=== PATIENT | female | born 1985 | race Caucasian/White ===

== ENCOUNTER 2022-06-05 13:08 | Outpatient (CLI) | payer OTHER, SELFPAY ==
[2022-06-07 21:11] LABS: Rapid Plasma Reagin (RPR) Non Reactive (Non Reactive)
== END 2022-06-05 13:09 | disposition home or self-care (01) ==
LOC: NFLDREF 13:09
PROVIDERS: PCP Family Medicine; Visit Provider Obstetrics & Gynecology
DX: Z34.92 Encounter for supervision of normal pregnancy, unspecified, second trimester (principal); Z3A.27 27 weeks gestation of pregnancy
CPT/HCPCS: 86592

== ENCOUNTER 2022-07-08 12:36 | Outpatient (CLI) | payer OTHER, SELFPAY ==
--- OUTSIDE RECORDS SUMMARY | 2022-07-08 12:38 | XMS_ITS | Encounter Summary ---
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
--- OUTSIDE RECORDS SUMMARY | 2022-07-08 12:38 | XMS_ITS | Clinical Summary ---
:1985 Author Organization [facility] Address [address] [place] [address] Care Team Providers Name Role Phone Patience Arechiga APRN, DRILLING RIG OPERATOR Primary Care Provider Unavail able Source Comments You are receiving this document as you are listed as the primary care provider,follow-up provider, or the patient has been referred to you for consultation.This is in compliance with the Medicare and Medicaid EHR Incentive Program,which states Providers who transition their patient to another setting of careor provider of care or refers their patient to another provider of care shouldprovide summarycare record for each transition of care or referral. [employer] Allergies Active Allergy Reactions Severity Noted Date Comments Sulfa Antibiotics Rash 09/10/2017 Medications Medication Sig Dispensed Refills Start Date End Date Status ALBUTEROL Indications: 0 Active INIndications: exercised induced exercised induced asthma asthma cetirizine (ZYRTEC) Take 10 mg by mouth 0 Active 10 MG tablet as needed for Allergies. Take 1 Tab by mouth 0 Active vitamin-ferrous daily. fumarate-folic acid (PRENATALPLUS) 27-1 MG tablet Social History Tobacco Use Types Packs/Day Years Used Date Smoking Tobacco: Never Smokeless Tobacco: Never Sex Assigned at Date Recorded Not on file Plan of Treatment Health Maintenance Due Date Last Done Comments Cervical Cancer Screening Due 1985 Hep C Screening (Preventive 1985 Services) HepB (1) 1985 COVID-19 Vaccine (#1) 04/04/1986 HIV Screening (Preventive 2001 Services) Adult Preventive Visit 2003 DTaP/Tdap/Td (1 - Tdap) 2004 Influenza (#1) 2022 Zoster/Shingles (1 of 2) 2035 HPV Vaccine Aged Out No longer marisol lindsey based on patient's age to complete this topic HepA Aged Out No longer eligib le based on patient's age to complete this topic Hib Aged Out No longer eligib le based on patient's age to complete this topic IPV (Polio) Aged Out No longer eligib le based on patient's age to complete this topic MCV4 Aged Out No longer eligib le based on patient's age to complete this topic Pneumococcal Aged Out No longer eligib le based on patient's age to complete this topic Insurance Payer Benefit Plan / Subscriber ID Effective Dates Phone Addre ss Type Group BC[facility] [id number] 2017-Present [address] [address] [place] [address] [phone] ([address]) [place] [address] Care Teams Air Grinder Relationship Specialty Start Date End Date Patinece Arechiga APRN, DRILLING RIG OPERATOR PCP - General Nurse Practitioner
--- OUTSIDE RECORDS SUMMARY | 2022-07-08 12:38 | XMS_ITS | Encounter Summary ---
:1985 Author Organization [employer] Address [address] [place] [address] Care Team Providers Name Role Phone Patience Arechiga APRN, INBOUND INGREDIENT LOGISTICS SPECIALIST Primary Care Provider Unavail able Reason for Visit Reason Comments SKIN LESION mole of concern Encounter Details Date Type Department Care Team Description 09/10/2017 Initial Consult [facility] Kate Lazar, Neoplasm of skin (Primary Dx ); [address] MD Ingrown hair; [id number] Painful skin lesion [place] [address] [place] [phone] [address] Social History Tobacco Use Types Packs/Day Years Used Date Smoking Tobacco: Never Smokeless Tobacco: Never Sex Assigned at Date Recorded Not on file documented as of this encounter Patient Instructions Patient InstructionsJose Farnaz XiangROULA - 09/10/2017 9:15 AM CDT Care Instructions after a shave skin biopsy/removal When do I start changing the bandage on my wound site? Leave the original bandage/dressing in place for 24 to 48 hours. If you develop bleeding from the site, apply firm pressure directly over the bandage, using the heel of your hand, for [address] on top of the first one - don???t keep removing and replacing dressings. NO PEEKING!Notify us if the bleeding still does not stop. How do I change the bandage on my wound? Clean the area once a day with warm soap and water. Gently pat dry the area. After the area has been cleaned and is dry, apply a small amount of petroleum jelly or Aquaphor healing ointment and apply a new bandage. We prefer that you do not use an antibacterial ointment (i.e. bacitracin, Neosporin) as many people develop a hypersensitivity including a rash and even blistering related to these. Is it okay to shower after having a skin biopsy/removal? Showering is okay, but please do not soak in a bathtub, hot tub, or pool. This will slow the healingprocess and may create infection. When can I stop bandaging my wound? Continue the wound care process until the area is healed. Complete healing usually takes 2-4 weeks. Wounds heal best when kept moist, try not to let the area dry out. During this process you may see a white film develop over your wound and this is part of the normal healing process. Letting them open to air, drying out, and having a scab form actually causes wounds to take longer to heal. If your skin is getting sensitive to the bandage, use gauze and paper tape. Can I exercise after having a skin biopsy/removal? Avoid exercising for 2 days. What signs or symptoms should I call the dermatology department about? Infection after a biopsy is not likely, but can occur. Mild amounts of redness, bruising, swelling, discomfort and a clear to yellowish to blood-tinged discharge are normal. Signs of Infection include: fever, increasing pain, blood blister, drainage of pus, and extreme heatfrom the site. Please call the clinic at [phone] if you experience any of these symptoms. When will I receive my skin biopsy/removal results? Your skin biopsy specimen will be sent to our laboratory for processing. It will then be interpretedby one of our board-certified dermatopathologists, Dr. Joe Brantley, Dr. Lauren Nielson, and Dr. Pj Dick. The dermatopathologists will write their findings in a pathology report. Your provider will then contact you with the results of this pathology report when it is available. Typically you wi ll be contacted 7 to 14 days after your biopsy or procedure. Our pathology services will be listed separately on your bill. If you have further questions about the biopsy process or if you have not received your biopsy results within 2 weeks, please call us at [phone]. documented in this encounter Progress Notes Kate Lazar MD - 09/10/2017 9:15 AM CDT Chief Complaint Patient presents with ??? SKIN LESION mole of concern History of Present Illness: Adelaide Jean is a 31 y.o. female who presents to clinic today for a couple spots of concern. Patient is new to [facility]. No history of skin cancer. Patient states she has a raised mole in the left axilla which has gotten darker and also gets caught when shaving. She feels some other moles changed in and is wondering if this is normal. Patient also notes a pimple-like spot near her C section scar. She additionally has questions about tightening of skin on abdomen post . No other skin concerns at this time. Past Medical History: No history of skin cancer. Family History: Sister with possible history of melanoma. Mother has atypical nevi. Social History: Here with 4.5 month old daughter Yesika. Medications: The patient has a current medication list which includes the following prescription(s): albuterol, cetirizine, and vitamin-ferrous fumarate- folic acid. Allergies: The patient is allergic to sulfa antibiotics. Review of Systems: General/Constitutional: No fever, chills, unexplained weight loss. Allergy/Immunologic: No history of hypersensitivity to injected anesthesia or topical care products.Not currently immunosuppressed. Skin: See HPI for pertinent positives. No other bleeding, itching, peeling, changing skin lesions other than reported in HPI. Physical Examination: General: Well-appearing female, in no distress, alert and oriented. Skin: Focused exam of the left axilla and abdomen. Pertinent findings: - (A) She has a tag like mole in the left axillary vault, kind of darker in the center, 5 mm. - Inflammatory papule on C section scar on the low abdomen. - Loose abdominal skin post . Exam otherwise was normal. Assessment and Plan: 1. Neoplasm of unspecified nature of soft tissue or skin. Site A: Left axillary vault. Clinical impression: Irritated nevus. Anesthesia was obtained by 1% lidocaine and epinephrine by local infiltration. Area was prepped withalcohol. Lesion was removed by tangential excision with a double edged blade. Edges and base curetted. Hemostasis with aluminum chloride. Routine after care directions given. No complications. Specimensent for pathology. Patient will be notified of the report and need for follow up. 2. Inflammatory papule on C section scar. Patient reassured. Discussed this should resolve on its own. Looks like ingrown hair. 3. Post body changes. Discussed strengthening abdominal muscles and following up with Plastic Surgery if desired. Follow up: Return to clinic as needed. Scribe Disclosure: I, Rossi Gongora, am serving as a scribe to document services personally performed by Kate Lazar MD at this visit, based upon the provider's statements to me. Entered on 09/10/17. Notes Recorded by Peyton Pal RN on 09/17/2017 at 4:07 PM Patient has been notified of results. ------ Notes Recorded by Kate Lazar MD on 09/17/2017 at 12:19 PM Please let her know that this was a benign mole and requires no further treatment. ? Narrative ? FINAL DERMATOPATHOLOGY REPORT Pathology #: [id number] ? Date Obtained: 09/10/2017 ?Date Received: 09/11/2017 DIAGNOSIS: ?Skin, left axillary vault, shave biopsy: ?- Compound nevus, extending to the edges of the biopsy. ? LAUREN NIELSON MD ? (electronic signature) ? 09/12/2017 ??12:09 CLINICAL NOTES: ?Pertinent Clinical Hx/Evaluate for?->. Clinical Impression ?(A)->Irritated nevus ORGAN/TISSUE SITE: ?L axillary vault GROSS DESCRIPTION: ?Received in a formalin-filled container labeled with the ?patient's name is a 6 x 3 x 3 mm shave biopsy of skin. ??The ?specimen is marked with black ink, bisected, and submitted ?entirely in one cassette. ?da ? SPDEN Farnaz Garcia LPN - 09/10/2017 9:15 AM CDT Images from the original note were not included. Biopsy Left axillary vault documented in this encounter Plan of Treatment Not on filedocumented as of this encounter Procedures Procedure Name Priority Date/Time Associated Comments Diagnosis DERMATOLOGY TISSUE Routine 09/10/2017 9:47 AM Neoplasm of skin Results for this TRACKING TEST CDT procedure are in the results section. SURGICAL BENJI PARK Routine 09/10/2017 7:00 AM Re sults for this NICOLLET CDT procedure are i n the results section. documented in this encounter Results Dermatology Tissue Tracking Test (09/10/2017 9:47 AM CDT) [facility] Signature Dermatology Collected PN SOFT Specimen Status Specimen (Source) Anatomical Collection Method Collection Time Re ceived Time Location / / Volume Laterality 09/10/2017 9:47 AM CDT Kate Lazar MD LAB_1 Performing Organization Address City/State/ZIP Code Phon e Number [facility] [address] [place] [address] Pathology Report (09/10/2017 7:00 AM CDT) [facility] gist Method Time Signature Path: FINAL DERMATOPATHOLOGY REPORT PN COLEEN Pathology #: [id number] ? Date Obtained: 09/10/2017 ?Date Received: 09/11/2017 DIAGNOSIS: ?Skin, left axillary vault, shave biopsy: ?- Compound nevus, extending to the edges of the bio psy. ? Johnie UMANA ? (electronic signatur e) ? 09/12/2017 ??12:0 9 CLINICAL NOTES: ?Pertinent Clinical Hx/Evaluate for?->. Clinical I mpression ?(A)->Irritated nevus ORGAN/TISSUE SITE: ?L axillary vault GROSS DESCRIPTION: ?Received in a formalin-filled container labeled victoriano rouse the ?patient's name is a 6 x 3 x 3 mm shave biopsy of sk in. ??The ?specimen is marked with black ink, bisected, and patterson bmitted ?entirely in one cassette. ?da ? SPDEN MICROSCOPIC DESCRIPTION: ?Microscopic examination performed. Technical component performed at: [facility], [address], [place] [address] Professional component performed at: [facility], [address] [place] [address] Specimen Anatomical Collection Method Collection Time Receive d Time (Source) Location / / Volume Laterality SHAVE BIOPSY OF 09/10/2017 7:00 AM 2016 7:00 SKIN / Unknown CDT AM CDT Kate Lazar MD LAB_1 Performing Organization Address City/State/ZIP Code Phon e Number PN SOFT [address] [place] [address] documented in this encounter Visit Diagnoses Diagnosis Neoplasm of skin ([facility]) - Primary Neoplasm of unspecified nature of bone, soft tissue, and skin Ingrown hair Other specified disease of hair and hair follicles Painful skin lesion documented in this encounter Care Teams Barrel Tester And Drainer Relationship Specialty Start Date End Date Elie-Patience Garcia APRN, INBOUND INGREDIENT LOGISTICS SPECIALIST PCP - General Nurse Practitioner documented as of this encounter
--- NOTE | 2022-07-08 13:00 | CRLHL7_ITS ---
For Patients: As a result of the Century Cures Act, medical imaging exams and procedure reports are released immediately into your electronic medical record. You may view this report before your referring provider. If you have questions, please contact your health care provider. INDICATION: Third trimester scan, evaluate growth. COVID positive in , AMA COMPARISON: 04/10/2022 TECHNIQUE: Real time craig scale imaging of the fetus was performed. FINDINGS: Sonographic imaging demonstrates a single living intrauterine gestation. Fetus demonstrates a regular cardiac rate of 135 beats per minute. Fetus has a vertex position. The placenta lies anteriorly. Amniotic fluid volume appears normal and there is a single deepest vertical pocket: 4.6 cm. The estimated weight is 2236gm which lies at the 73rd %. On the prior OB ultrasound exam dated 04/10/2022 the estimated weight was at the 59th%. BPD 37th percentile. HC 55th percentile. AC 91st percentile. FL 39th percentile. The HC/AC ratio measures 1.01 range (0.95-1.11). IMPRESSION: Sonographic gestational age 33 weeks 3 days and sonographic due date of 08/23/2022. Sonographic age is 6 days ahead of the clinical age. Estimated weight 73rd percentile. Abdominal circumference 91st percentile. Query possible prominent proximal duodenum in addition to the stomach on the cine clips. Follow-up ultrasound in 2 weeks recommended to assess this finding in more detail. Of note, there is no polyhydramnios on today`s examination. Dictated by Luis Fernando Whitley MD @ 07/08/2022 2:37:14 PM (Electronically Signed)
== END 2022-07-08 12:37 | disposition home or self-care (01) ==
LOC: US 12:37
PROVIDERS: PCP Family Medicine; Visit Provider Obstetrics & Gynecology
DX: O98.513 Other viral diseases complicating pregnancy, third trimester (principal); U07.1 COVID-19; Z3A.33 33 weeks gestation of pregnancy
CPT/HCPCS: 76816

== ENCOUNTER 2022-07-22 13:58 | Outpatient (CLI) | payer OTHER, SELFPAY ==
--- NOTE | 2022-07-22 14:00 | CRLHL7_ITS ---
For Patients: As a result of the Cures Act, medical imaging exams and procedure reports are released immediately into your electronic medical record. You may view this report before your referring provider. If you have questions, please contact your health care provider. INDICATION: COVID in , check growth. COMPARISON: OB ultrasound 07/08/2022. TECHNIQUE: Real time craig scale imaging of the fetus was performed. FINDINGS: Sonographic imaging demonstrates a single living intrauterine gestation. The fetus has a regular cardiac rate of 144 beats per minute. The fetus has a cephalic orientation. The placenta lies anteriorly without evidence of placenta previa. Amniotic fluid volume appears normal. Single deepest pocket measures 5.0 cm. The composite ultrasound gestational age is calculated at 34 weeks 6 days with an estimated sonographic due date of 08/27/2022. The estimated weight is 2520 grams which lies at the 52nd percentile. The following biometric measurements were obtained: Biparietal diameter: 8.62 cm (34 weeks 5 days) (57th percentile) Head circumference: 31.31 cm (35 weeks 1 day) (27th percentile) Abdominal circumference: 30.75 cm (34 weeks 5 days) (60th percentile) Femur length: 6.79 cm (34 weeks 6 days) (51st percentile) The HC/AC ratio measures: 1.02 (range 0.93-1.11) IMPRESSION: 1. Single living intrauterine gestation in cephalic position with heart rate 144 beats per minute. 2. Ultrasound gestational age 34 weeks 6 days with sonographic due date 08/27/2022. This is concordant with the clinical gestational age of 34 weeks 4 days. 3. Estimated weight at the 52nd percentile. Dictated by Laura Evangelista MD @ 07/22/2022 6:26:43 PM (Electronically Signed)
== END 2022-07-22 13:59 | disposition home or self-care (01) ==
LOC: US 13:59
PROVIDERS: PCP Family Medicine; Visit Provider Obstetrics & Gynecology
DX: O98.513 Other viral diseases complicating pregnancy, third trimester (principal); Z3A.34 34 weeks gestation of pregnancy
CPT/HCPCS: 76816

== ENCOUNTER 2022-07-29 16:44 | Outpatient (CLI) | payer OTHER, SELFPAY ==
--- OUTSIDE RECORDS SUMMARY | 2022-07-29 16:45 | XMS_ITS | Clinical Summary ---
:1985 Author Organization [facility] [place] [address] Care Team Providers Name Role Phone Pcp, No Primary Care Provider Unavailable Allergies Active Allergy Reactions Severity Noted Date Comments Erythromycin Homeopathic Products Sulfa (Sulfonamide Antibiotics) Sulfasalazine Rash 09/10/2017 Medications Medication Sig Dispensed Refills Start Date End Date Status fluticasone (50 mcg per Inhale 1-2 Sprays 1 Bottle 3 04/14/20 14 Active actuation) nasal into both solution nostrils once (FLONASE)Indications: daily. Allergic rhinitis, cause unspecified olopatadine (PATANOL) Place 1 Drop into 1 Bottle 2 06/16/2015 Active 0.1 % ophthalmic both eyes 2 times solutionIndications: daily. Allergic rhinitis, cause unspecified montelukast (SINGULAIR) Take 1 tablet by 90 tablet 0 5 Active 10 mg mouth at bedtime. tabletIndications: Allergic rhinitis, cause unspecified vitamin-folic Take 1 tablet by 0 11/14/2015 Active acid 1 mg ( mouth once daily. VITAMIN) tablet/capsule cetirizine (ZYRTEC) 10 Take 1 tablet by 0 02/02/2016 Active mg tabletIndications: mouth once daily. Other allergic rhinitis albuterol HFA Inhale 1-2 Puffs 1 Inhaler 1 04/16/2016 Active (PROVENTIL HFA) 90 by mouth every 6 mcg/actuation hours if needed. inhalerIndications: Acute sinusitis, unspecified, Cough mometasone-formoterol Inhale 2 Puffs by 1 Inhaler 3 04/16/2016 Active (DULERA) 100-5 mouth 2 times mcg/actuation daily. inhalerIndications: Other seasonal allergic rhinitis cholecalciferol Take 2 tablets by 0 09/23/2017 Active (VITAMIN D) 1,000 unit mouth once daily. tablet PROXY UNCLASSIFIED MED Photo therapy 1 unit 0 09/24/2017 Active (ORDER AWAITING lamp to use every PHARMACY morning for 30 ENTRY)Indications: Seasonal affective disorder (HC) citalopram (CELEXA) 20 Take 1 tablet by 30 tablet 4 10/08/2017 Active mg tabletIndications: mouth once daily. 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 Acne 04/24/2013 Anxiety 04/24/2013 Overview: La by running Seasonal affective disorder 10/14/2012 Streptococcal sore throat 03/25/2007 Overview: chronic tonsilitis Allergic rhinitis, cause unspecified Abnormal glandular Papanicolaou smear of cervix Overview: h/o colposcopy, and LEEP 2005 Immunizations Name Administration Dates Next Due AMB Influenza, IIV3 (Age >=3 years)(Flu Clinic Only) 008 DTP 07/10/1998 Influenza, IIV3 (Age >=3 years) 08/18/2009, 01/06/2007 Influenza, IIV4 09/23/2017 MMR 07/10/1998, 09/16/1987 Meningococcal Vaccine (Menactra) 07/24/2007 Td (Age >=7 Years) 07/10/1998 Tdap 06/20/2008 Family History Medical History Relation Name Comments Hypertension Father Psychiatric illness Father SAD Other Other 1 P uncle children with cystic fibrosis Other Other 2 sister not a car rier Cancer Sister 1 skin Psychiatric illness Sister 2 SAD Relation Name Status Comments Father Other 1 Other 2 Sister 1 Sister 2 Social History Tobacco Use Types Packs/Day Years Used Date Never Smoker Smokeless Tobacco: Never Used Tobacco Cessation: Counseling Given: Yes Alcohol Use Standard Drinks/Week Comments No 0 (1 standard drink = 0.6 oz pure alcoho l) Sex Assigned at Date Recorded Not on file Obstetrics History Para Term AB IAB SAB Ectopic Multiple Living Live Births 2 1 1 1 Date Outcome GA Total Labor/2nd/3rd Weight Sex Delivery Anes PTL Lotus A 1 A5 Name Clin Labor Term Last Filed Vital Signs Vital Sign Reading Time Taken Comments Blood Pressure 115/77 11/06/2017 4:32 PM LUBE WORKER Pulse 68 11/06/2017 4:32 PM LUBE WORKER Temperature 36.6 ??C (97.8 ??F) 11/06/2017 4:32 PM LUBE WORKER Respiratory Rate 20 10/08/2017 7:41 AM LUBE WORKER Oxygen Saturation 97% 11/06/2017 4:32 PM LUBE WORKER Inhaled Oxygen Concentration - - Weight 67.1 kg (148 lb) 11/06/2017 4:32 PM LUBE WORKER Height 165.8 cm (5' 5.28) 09/23/2017 11:04 AM CDT Body Mass Index 24.42 09/23/2017 11:04 AM CDT Plan of Treatment Health Maintenance Due Date Last Done Comments COVID-19 vaccine series (#1) 04/04/1986 Hepatitis C screening for age 1110/05/2003 18-79 Tetanus booster 06/20/2018 06/20/2008, 07/10/1998 BMI (ht and wt on same day) for 09/23/2018 09/23/2017, 01/22 age 18+ Depression screening for age 12+ 09/23/2018 09/23/2017, 09/2016 Influenza for age 9-49 07/25/2022 09/23/2017, 08/18/2009, 09/16/2008, Additional history exists Pap test for age 21-65 01/11/2025 01/11/2022, 01/11/2022, 05/22/2016, Additional history exists Tdap Completed 06/20/2008 Results Not on filefrom Last 3 Months Insurance Payer Benefit Plan / Subscriber ID Effective Dates Phone Addre ss Type Group BLUE [employer]OSS [employer] OF [id number] 2017-Presen [address] [place] [address] Care Teams Two Needle Machine Operator Relationship Specialty Start Date End Date Pcp, No PCP - General 10/30/18 .
--- OUTSIDE RECORDS SUMMARY | 2022-07-29 16:46 | XMS_ITS | Encounter Summary ---
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
--- OUTSIDE RECORDS SUMMARY | 2022-07-29 16:46 | XMS_ITS | Encounter Summary ---
:1985 Author Organization [employer] Address [address] [place] [address] Care Team Providers Name Role Phone Patience Arechiga APRN, GERIATRIC AIDE Primary Care Provider Unavail able Reason for Visit Reason Comments SKIN LESION mole of concern Encounter Details Date Type Department Care Team Description 09/10/2017 Initial Consult [facility] Kate Lazar, Neoplasm of skin (Primary Dx ); [address] Pat[address] MD Ingrown hair; [place] [phone] Painful skin lesion [place] [address] [place] [phone] Social History Tobacco Use Types Packs/Day Years [...] the site. Please call the clinic at [phone] if you experience any of these symptoms. [...] within 2 weeks, please call us at [phone]. documented in this encounter Progress Notes Kate Lazar MD - 09/10/2017 9:15 AM CDT Chief Complaint Patient presents with ??? SKIN LESION mole of concern History of Present Illness: Adelaide Jean is a 31 y.o. female who presents to clinic today for a couple spots of concern. Patient is new to [facility]. No history of skin cancer. Patient [...] Narrative ? FINAL DERMATOPATHOLOGY REPORT Pathology #: [id number] ? Date Obtained: 09/10/2017 ?Date Received: 09/11/2017 [...] Tissue Tracking Test (09/10/2017 9:47 AM CDT) [facility] Signature Derm[facility] Collected PN SOFT Specimen Status Specimen (Source) Anatomical Collection Method Collection Time Re ceived Time Location / / Volume Laterality 09/10/2017 9:47 AM CDT Kate Lazar MD LAB_1 Performing Organization Address City/State/ZIP Code Phon e Number NED HORNE [address] [place] [address] Pathology Report (09/10/2017 7:00 AM CDT) [facility] gist Method Time Signature Path: FINAL DERMATOPATHOLOGY REPORT PN COLEEN Pathology #: [id number] ? Date Obtained: 09/10/2017 ?Date Received: 09/11/2017 [...] ?Microscopic examination performed. Technical component performed at: [facility], [address] [place], [place] [address] Professional component performed at: 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
--- OUTSIDE RECORDS SUMMARY | 2022-07-29 16:46 | XMS_ITS | Clinical Summary ---
:1985 Author Organization [facility] Address [address] [place] [address] Care Team Providers Name Role Phone Patience Arechiga APRN, BLOCKING MACHINE TENDER Primary Care Provider Unavail able Source Comments [...] for each transition of care or referral. [facility] Allergies Active Allergy Reactions Severity Noted Date [...] Dates Phone Addre ss Type Group BCBS [facility] [id number] 2017-Present [address] [address] [place] [address] [phone] ([address]) [place] [address] Care Teams Investment Representative Relationship Specialty Start Date End Date Patience Arechiga APRN, BLOCKING MACHINE TENDER PCP - General Nurse Practitioner
[2022-07-29 17:01] VITALS: BP 97/64; PULSE 84; PULSE 95; O2SAT 96
[2022-07-29 17:02] VITALS: BP 97/64; PULSE 87; RESP 14; TEMP 36.8; O2SAT 96
[2022-07-29 17:06] LABS: Appearance Urine Clear (Clear); Bilirubin Urine Negative (Negative); Blood Urine Negative (Negative); Color Urine Yellow (Yellow); Glucose Urine Negative (Negative); Ketones Urine Negative (Negative); Leukocyte Esterase Urine Negative (Negative); Nitrite Urine Negative (Negative); Protein Urine Negative (Negative); Specific Gravity Urine 1.015 (1.000-1.030)
--- NOTE | 2022-07-29 17:52 | PC.OBNST ---
NST Note NST Note Start: 07/29/22 16:44 Freq: ONCE Status: Active Protocol: Document 07/29/22 17:49 LP (Rec: 07/29/22 17:51 LP [id number]) NST Note 5 Para (# of births) 3 EDC 08/29/22 Gestational Age In Weeks & Days 35 Weeks & 4 Days High Risk Factors Advanced Maternal Age Patient Presented with Complaint(s) of Contractions/cramping,Pain If Pain, describe location lower pelvic pressure Reactive Yes Appropriate for Gestational Age Yes KRISH Rutledge, RN Date 07/29/22 Reactive Yes Appropriate for Gestational Age Yes KRISH Alaniz, RN Date 07/29/22 OB NST charge Yes Complete NST Note via Write Note Yes The provider's electronic signature indicates the NST is reactive/appropriate for gestational age. *Note to provider: If an addendum is required, open the patient's chart and click on the note under the Nurse/Allied Health tab.
== END 2022-07-29 17:45 | disposition home or self-care (01) ==
LOC: OB OUT 16:44 → OB 16:46
PROVIDERS: PCP Family Medicine; Visit Provider Obstetrics & Gynecology
DX: O47.03 False labor before 37 completed weeks of gestation, third trimester (principal); O09.513 Supervision of elderly primigravida, third trimester; Z3A.35 35 weeks gestation of pregnancy
CPT/HCPCS: 59025; 81003; 99213

== ENCOUNTER 2022-08-02 13:55 | Outpatient (CLI) | payer OTHER, SELFPAY ==
--- NOTE | 2022-08-02 | CRLHL7_ITS ---
For Patients: As a result of the Century Cures Act, medical imaging exams and procedure reports are released immediately into your electronic medical record. You may view this report before your referring provider. If you have questions, please contact your health care provider. INDICATION: COVID POSITIVE IN , AMA COMPARISON: 07/22/2022 TECHNIQUE: Real time craig scale imaging of the fetus was performed. FINDINGS: Sonographic imaging demonstrates a single living intrauterine gestation. Fetus demonstrates a regular cardiac rate of 146 beats per minute. Fetus has a vertex position. The placenta lies anteriorly. Amniotic fluid volume appears normal and there is a single deepest vertical pocket: 7.2 cm. The estimated weight is 3155gm which lies at the 81st %. On the prior OB ultrasound exam dated 07/22/2022 the estimated weight was at the 52nd%. BPD 28th percentile. HC 66th percentile. AC 96th percentile. FL 40th percentile. The HC/AC ratio measures 0.97 range (0.92-1.05). IMPRESSION: Sonographic gestational age is 36 weeks 6 days and sonographic due date 08/24/2022. Sonographic age is 5 days ahead of the clinical age. Estimated weight 81st percentile. Abdominal circumference 96th percentile. Dictated by Luis Fernando Whitley MD @ 08/02/2022 3:42:13 PM (Electronically Signed)
--- OUTSIDE RECORDS SUMMARY | 2022-08-02 13:58 | XMS_ITS | Clinical Summary ---
:1985 Author Organization [employer] [facility] Address [place] [address] Care Team Providers Name Role Phone Pcp, [...] Comments Blood Pressure 115/77 11/06/2017 4:32 PM RESOURCE ANALYST Pulse 68 11/06/2017 4:32 PM RESOURCE ANALYST Temperature 36.6 ??C (97.8 ??F) 11/06/2017 4:32 PM RESOURCE ANALYST Respiratory Rate 20 10/08/2017 7:41 AM RESOURCE ANALYST Oxygen Saturation 97% 11/06/2017 4:32 PM RESOURCE ANALYST Inhaled Oxygen Concentration - - Weight 67.1 kg (148 lb) 11/06/2017 4:32 PM RESOURCE ANALYST Height 165.8 cm (5' 5.28) 09/23/2017 11:04 [...] Type Group BLUE CROSS BLUE CROSS OF [id number] 2017-Presen [address] [place] [address] Care Teams Steaming Cabinet Tender Relationship Specialty Start Date End Date Pcp, No PCP - General 10/30/18 .
--- OUTSIDE RECORDS SUMMARY | 2022-08-02 13:58 | XMS_ITS | Clinical Summary ---
:1985 Author Organization [facility] [employer] [facility] Address [address] [place] [address] Care Team Providers Name Role Phone Patience Arechiga APRN, SENIOR LINUX SYSTEMS ENGINEER Primary Care Provider Unavail able Source Comments [...] for each transition of care or referral. [place] Allergies Active Allergy Reactions Severity Noted Date [...] Dates Phone Addre ss Type Group BCBS [facility] [id number] 2017-Present [address] [address] [place] [address] [phone] [place] [address] Care Teams Cheerleading Coach Relationship Specialty Start Date End Date Patience Arechiga APRN, SENIOR LINUX SYSTEMS ENGINEER PCP - General Nurse Practitioner
--- OUTSIDE RECORDS SUMMARY | 2022-08-02 13:58 | XMS_ITS | Encounter Summary ---
:1985 Author Organization [facility] Address [address] [place] [address] Care Team Providers Name Role Phone Unavailable Primary Care Provider Unavailable Encounter Details Date Type Department Care Team Description 11/24/1989 PN Conversion Only CHILDBIRTH EDUCATOR [address] [place] [address] Social History Tobacco Use Types Packs/Day Years Used Date Smoking Tobacco: Never Assessed Sex Assigned at Date Recorded Not on file documented as of this encounter Plan of Treatment Not on filedocumented as of this encounter Visit Diagnoses Not on filedocumented in this encounter
== END 2022-08-02 13:56 | disposition home or self-care (01) ==
PROVIDERS: PCP Family Medicine; Visit Provider Family Medicine
DX: O98.513 Other viral diseases complicating pregnancy, third trimester (principal); U07.1 COVID-19; Z3A.36 36 weeks gestation of pregnancy
CPT/HCPCS: 76816; 87081; 87653

== ENCOUNTER 2022-08-08 12:34 | Outpatient (CLI) | payer OTHER, SELFPAY ==
[2022-08-08] VITALS (10 sets, daily range): BP systolic 109; BP diastolic 74; PULSE 84–99; RESP 16; TEMP 36.9; O2SAT 94–98
--- OUTSIDE RECORDS SUMMARY | 2022-08-08 12:36 | XMS_ITS | Clinical Summary ---
:1985 Author Organization [facility] Address [address] [place] [address] Care Team Providers Name Role Phone Patience Arechiga APRN, MINE BOSS Primary Care Provider Unavail able Source Comments [...] for each transition of care or referral. [employer] Allergies Active Allergy Reactions Severity Noted Date [...] Dates Phone Addre ss Type Group BCBS [facility] [id number] 2017-Present [address] [address] [place] [address] [phone]) [place] [address] Care Teams Ruling Machine Operator Relationship Specialty Start Date End Date Patience Arechiga APRN, MINE BOSS PCP - General Nurse Practitioner
--- OUTSIDE RECORDS SUMMARY | 2022-08-08 12:36 | XMS_ITS | Clinical Summary ---
:1985 Author Organization [employer] [facility] [place] [address] Care Team Providers Name Role Phone Pcp, [...] Comments Blood Pressure 115/77 11/06/2017 4:32 PM EXPLOSIVES OPERATOR Pulse 68 11/06/2017 4:32 PM EXPLOSIVES OPERATOR Temperature 36.6 ??C (97.8 ??F) 11/06/2017 4:32 PM EXPLOSIVES OPERATOR Respiratory Rate 20 10/08/2017 7:41 AM EXPLOSIVES OPERATOR Oxygen Saturation 97% 11/06/2017 4:32 PM EXPLOSIVES OPERATOR Inhaled Oxygen Concentration - - Weight 67.1 kg (148 lb) 11/06/2017 4:32 PM EXPLOSIVES OPERATOR Height 165.8 cm (5' 5.28) 09/23/2017 11:04 [...] Type Group BLUE CROSS BLUE CROSS OF [id number] 2017-Presen [address] [place] [address] Care Teams Roving Can Tender Relationship Specialty Start Date End Date Pcp, No PCP - General 10/30/18 .
--- OUTSIDE RECORDS SUMMARY | 2022-08-08 12:36 | XMS_ITS | Encounter Summary ---
:1985 Author Organization [facility] Address [address] [place] [address] Care Team Providers Name Role Phone Unavailable Primary Care Provider Unavailable Encounter Details Date Type Department Care Team Description 11/24/1989 PN Conversion Only PMO PROJECT MANAGER [address] [place] [address] Social History Tobacco Use Types Packs/Day Years Used Date Smoking Tobacco: Never Assessed Sex Assigned at Date Recorded Not on file documented as of this encounter Plan of Treatment Not on filedocumented as of this encounter Visit Diagnoses Not on filedocumented in this encounter
--- OUTSIDE RECORDS SUMMARY | 2022-08-08 12:36 | XMS_ITS | Encounter Summary ---
:1985 Author Organization [employer] Address [address] [place] [address] Care Team Providers Name Role Phone Patience Arechiga APRN, BAGGAGE SCREENER Primary Care Provider Unavail able Reason for Visit Reason Comments SKIN LESION mole of concern Encounter Details Date Type Department Care Team Description 09/10/2017 Initial Consult [facility] Kate Lazar, Neoplasm of skin (Primary Dx ); [address] MD Ingrown hair; [place] [phone] Painful skin lesion [address] [address] [place] [phone] [address] Social History Tobacco Use Types Packs/Day Years [...] the site. Please call the clinic at [phone] if you experience any of these symptoms. [...] within 2 weeks, please call us at [phone]. documented in this encounter Progress Notes Kate Lazar MD - 09/10/2017 9:15 AM CDT Chief Complaint Patient presents with ??? SKIN LESION mole of concern History of Present Illness: Adelaide Jean is a 31 y.o. female who presents to clinic today for a couple spots of concern. Patient is new to [facility]. No history of skin cancer. [...] Narrative ? FINAL DERMATOPATHOLOGY REPORT Pathology #: [id number] ? Date Obtained: 09/10/2017 ?Date Received: 09/11/2017 [...] Tissue Tracking Test (09/10/2017 9:47 AM CDT) [facility] Method Time Signature Dermatology Collected PN SOFT Specimen Status Specimen (Source) Anatomical Collection Method Collection Time Re ceived Time Location / / Volume Laterality 09/10/2017 9:47 AM CDT Kate Lazar MD LAB_1 Performing Organization Address City/State/ZIP Code Phon e Number NED H[facility] [address] [place] [address] Pathology Report (09/10/2017 7:00 AM CDT) [facility] gist Method Time Signature Path: FINAL DERMATOPATHOLOGY REPORT PN COLEEN Pathology #: [id number] ? Date Obtained: 09/10/2017 ?Date Received: 09/11/2017 [...] ?Microscopic examination performed. 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
--- NOTE | 2022-08-08 13:13 | CRLHL7_ITS ---
For Patients: As a result of the Century Cures Act, medical imaging exams and procedure reports are released immediately into your electronic medical record. You may view this report before your referring provider. If you have questions, please contact your health care provider. INDICATION: NON-REACTIVE NST COMPARISON: 08/02/2022 TECHNIQUE: Real time craig scale imaging of the fetus was performed. Without non-stress testing. FINDINGS: Sonographic imaging demonstrates a single living intrauterine gestation. Fetus demonstrates a regular cardiac rate of 132 beats per minute. Fetus has a vertex position. The amniotic fluid volume appears normal and there is a single deepest pocket measurement of 7.3 cm. The fetus was active and demonstrated normal breathing movements. There was normal flexion and extension of the trunk and extremities. IMPRESSION: Normal biophysical profile score of 8 out of 8. Dictated by Luis Fernando Whitley MD @ 08/08/2022 2:45:38 PM (Electronically Signed)
--- NOTE | 2022-08-08 14:55 | PC.OBNST ---
NST Note NST Note Start: 08/08/22 12:40 Freq: ONCE Status: Active Protocol: Document 08/08/22 14:53 CRISTOPHER (Rec: 08/08/22 14:55 CRISTOPHER [id number]) NST Note 5 Para (# of births) 2 EDC 08/29/22 Gestational Age In Weeks & Days 37 Weeks & 0 Days Patient Presented with Complaint(s) of Decreased movement Reactive Yes Appropriate for Gestational Age Yes KRISH Zhu RN Date 08/08/22 Reactive Yes Appropriate for Gestational Age Yes KRISH Alaniz RNC Date 08/08/22 OB NST charge Yes Complete NST Note via Write Note Yes The provider's electronic signature indicates the NST is reactive/appropriate for gestational age. *Note to provider: If an addendum is required, open the patient's chart and click on the note under the Nurse/Allied Health tab.
== END 2022-08-08 14:30 | disposition home or self-care (01) ==
LOC: OB OUT 12:35 → OB 12:36
PROVIDERS: PCP Family Medicine; Visit Provider Advanced Practice Midwife
DX: Z34.93 Encounter for supervision of normal pregnancy, unspecified, third trimester (principal); Z3A.37 37 weeks gestation of pregnancy
CPT/HCPCS: 59025; 76819; 99213

== ENCOUNTER 2022-08-15 05:03 | Inpatient (IN) | payer OTHER, SELFPAY ==
[2022-08-15] VITALS (21 sets, daily range): BP systolic 102–128; BP diastolic 62–79; PULSE 57–90; RESP 16; TEMP 36.3–36.7; O2SAT 93–100; BMI 33.3
[2022-08-15 06:04] LABS: SARS PCR* Negative SARS-CoV-2 (Negative)
[2022-08-15] MEDS: LACTATED RINGERS 1000 ML 1,000 ML 999 ML IV (06:06)
[2022-08-15] MEDS: LACTATED RINGERS 1000 ML 1,000 ML 125 ML IV ×4 (06:45→17:02)
[2022-08-15 07:04] LABS: Basophils Absolute Auto 0.02 K/uL (0.00-0.30); Basophils Percent Auto 0.2 % (0.0-3.0); Eosinophils Absolute Auto 0.15 K/uL (0.00-0.50); Eosinophils Percent Auto 1.5 % (0.0-7.0); Hematocrit 35.4 % (33.0-51.0); Immature Granulocytes Abs Auto 0.04 K/uL (0.00-0.30); Lymphocytes Absolute Auto 2.32 K/uL (0.90-2.90); Lymphocytes Percent Auto 23.9 % (20-44); Mean Corpuscular HGB Conc 34 gm/dL (32-36); Mean Corpuscular Hemoglobin 30 pg (26-34); Mean Corpuscular Volume 89 fL (80-100); Neutrophils Absolute Auto 6.48 K/uL (1.7-7.0); Platelet Count* 182 K/uL (140-440); RDW Coefficient of Variation % 13.8 % (11.5-15.5); White Blood Count* 9.69 K/uL (4.50-11.00)
[2022-08-15 07:05] LABS: Slide Review Reflex No
--- NOTE | 2022-08-15 07:23 | P.PCN_ITS ---
Procedure Note Time Seen by Provider: : Date Seen: 08/15/22 Date of procedure: 08/15/22 Will [facility] bill your pro fee for this procedure?: Yes Procedure: Preoperative diagnosis: 36-year-old 5 para 2021 at 38 and 0/7 weeks ad mitted for a scheduled repeat low transverse section(3rd ). Postoperative diagnosis: Same Procedure: Repeat low-transverse section. Anesthesia: Spinal Surgeon: Kia Watkins MD Canvas Cutter Hand: Not applicable Quantitative blood loss: 448 mL IVF: 1800 mL UOP: 250 mL clear urine at end of the procedure Drain(s): For to gravity. Specimen: None Findings: A live male infant was delivered from the direct OA position at 8:01 a.m. Apgars were 8 at 1 min and 8 at 5 min respectively. weight: 7 lb 12 oz. Nuchal cord(s): Yes, single nuchal cord, loose, easily reduced at the sterile field prior to delivery of the 's shoulders. The placenta was delivered spontaneously and complete at 8:03 a.m.. Amniotic fluid: Clear. Normal uterus, fallopian tubes and ovaries were noted. Other findings: No abnormalities. Minimal adhesions. Procedure: Adelaide was taken to the OR where spinal anesthetic was found be adequate. A Torres catheter was placed. The patient was then placed in the dorsal supine position with a leftward tilt. She was then prepped and draped in a normal sterile manner. A Pfannenstiel skin incision was made and carried through sharply to the underlying layer of fascia. Fascia was incised in the midline and this incision carried laterally with Teresa scissors. The superior aspect of fascial incision was grasped with Mehrdad clamps, tented up, and the rectus muscles dissected off with a combination of blunt and sharp dissection. The inferior aspect of the fascial incision was grasped with Mehrdad clamps, tented up and again the rectus muscles dissected off with a combination of blunt and sharp dissection. The rectus muscles were in the midline. The peritoneum was entered bluntly. This opening was extended bluntly. An Theron-O self-retaining retractor was placed. A bladder flap was not created. Uterus was incised in a low transverse manner in the midline. This incision carried laterally with blunt pressure on the inferior and superior aspects of the uterine incision. The amniotic sac was ruptured. The 's head and body were delivered atraumatically. The infant was shown to the patient and her support person. The umbilical was clamped and cut immediately/after a 30-60 second delay. The infant was then handed to waiting nurse staff. The placenta was delivered spontaneously. The uterus was cleared of clots and debris. The uterine incision was re-approximated with the uterus in vivo. The 1st layer using 0-Vicryl in a running, locked manner. The 2nd layer using 0-Monocryl in a running, vertical, imbricating layer. Additional sutures needed for hemostasis: Yes: 5 figure of 8 sutures using 2-0 chromic. Pili was applied to the uterine incision. Excellent hemostasis was confirmed. The Theron retractor was removed. The rectus muscles were reapproximated use 3-0 Vicryl vertical mattress sutures. The rectus muscles were then closely inspected to verify hemostasis. Hemostasis was obtained with bipolar cautery. The fascia was then reapproximated using 0- Maxon loop in a running manner. The subcutaneous tissue was then irrigated with saline and hemostasis obtained with bipolar cautery. The subcutaneous tissue was reapproximated using 3-0 plain gut in a running manner. The skin was reapproximated using 4-0 Monocryl in a running subcuticular manner. Exofin skin adhesive and a Methaplex dressing were applied. The patient tolerated this procedure well. Sponge, lap and instrument counts were correct x2 active to the procedure. Patient was taken to the recovery area in stable condition. The patient received 2 g of IV Ancef prior to skin incision. She received 1 g IV TXA after umbilical cord clamp. 30 mg IV Toradol prior to leaving the operating room. Surgeon: Kia Watkins MD
[2022-08-15] MEDS: CEFAZOLIN 2 GM INJ IVP (07:45)
[2022-08-15] MEDS: KETOROLAC 30 MG/ML inj IVP ×3 (08:30→20:31)
--- NOTE | 2022-08-15 09:04 | W.PM.NB ---
Nerve Block Nerve Block Time Seen by Provider: 09:00 Date Seen: 08/15/22 Type of block requested by surgeon for post-operative analgesia: TAP Side: bilateral Time out performed: Yes Verification of patient name: Yes Verification of date of : Yes Site marking: site marked Name of person performing procedure: Bobby Continuous monitoring Was continuous monitoring of O2 sat, B/P, school bus monitor, recorded every 15 minutes?: Yes Procedure Checklist: sterile prep, needles and gloves Ultrasound guided. Images saved: Yes Medications given in 5ml increments after negative aspiration: Marcaine %: 0.25 mL: 30 Needle gauge: 20 and Exparel mL: 10 Patient tolerated procedure well: Yes Additional comments: Needle noted adjacent to nerve Block Charges Block Charge (with Pro Fee): TAP Bilateral Use of Ultrasound Machine for Block: Yes- US Guidance/pain block
--- NOTE | 2022-08-15 09:05 | W.ANESCHARGE ---
Anesthesia Charges Start Date/Time Anesthesia Start Date: 08/15/22 Anesthesia Start Time: 07:27 Stop Date/Time Anesthesia Stop Date: 08/15/22 Anesthesia Stop Time: 09:05 Summary Emergency: No
--- NOTE | 2022-08-15 10:00 | W.ANESCHARGE ---
Anesthesia Charges Start Date/Time Anesthesia Start Date: 08/15/22 Anesthesia Start Time: 07:27 Stop Date/Time Anesthesia Stop Date: 08/15/22 Anesthesia Stop Time: 09:05 Summary Emergency: No
[2022-08-15] MEDS: ACETAMINOPHEN 500 MG TABLET 1000 MG PO (17:29)
[2022-08-16] VITALS (7 sets, daily range): BP systolic 99–119; BP diastolic 56–81; PULSE 56–82; RESP 15–18; TEMP 36.6–36.9; O2SAT 93–98
[2022-08-16] MEDS: ACETAMINOPHEN 500 MG TABLET 1000 MG PO ×4 (00:51→23:17)
[2022-08-16] MEDS: KETOROLAC 30 MG/ML inj IVP ×3 (02:22→14:28)
[2022-08-16 06:53] LABS: Hemoglobin* 11.7 gm/dL (12.0-16.0)
--- NOTE | 2022-08-16 07:08 | PM.OBPNCS1 ---
OB - PN: A/P Assessment and Plan (1) Status post delivery: Status: Acute (2) Lactating mother: Status: Acute (3) Anxiety and depression: Status: Acute Plan 36 yo Post- Day 1 Lactating mother Routine Post- care plan support as needed Plan to discharge home tomorrow or next day per pt preference Plan Plan: routine postop care OB - PN: Subj Subjective Time Seen by Provider: 07:09 Date Seen: 08/16/22 Interval history: Adelaide is a 36 year old G5 now P3 at 38 0/7 weeks gestation that was admitted to the Center on 08/15/22 for repeat deliver. She had an uncomplicated low transverse delivery. She delivered a viable male . She is breast feeding and it is going very well per pt. the patient has done well. Pain is well controlled with Toradol and Tylenol. Pt has been up to bathroom and is urinating with no concerns, no BM yet. Lochia is rubra, small, no clots noted. Overall the pt feels great and has no concerns. Patient comments: no complaints and pain well controlled [place] infant status: feeding status: exclusively OB - PN: Obj Exam Physical Exam: Vital signs: Temp Pulse Resp BP Pulse Ox O2 Del Method 97.8 F 56 L 18 99/56 L 98 08/16/22 04:18 08/16/22 04:18 08/16/22 04:18 08/16/22 04:18 08/16/22 04:18 08/16/22 04:18 Constitutional: Constitutional: no acute distress Routine HEENT Exam: Head: Present normocephalic Eye: Present normal appearance Routine Neck Exam: Neck: Present full ROM Routine Respiratory Exam: Respiratory: Present CTA bilaterally Routine Cardiovascular Exam: Cardiovascular: Present RRR Routine Abdominal Exam: Abdominal: Present normal bowel sounds, soft and tenderness Fundus: Present firm Routine Extremities Exam: Extremities: Present full ROM; Absent pedal edema Routine Back/Spine/Pelvis Exam: Back/Spine: Present full ROM Routine Skin Exam: Skin: Present dry, normal color and warm; Absent rash Routine Neurological Exam: Neurological: Present alert and oriented X3 Detailed Neurological Exam: Coma Scale: Eye Opening: Spontaneous (4) Verbal Response: Orientated (5) Routine Psychiatric Exam: Psychiatric: Present normal affect, normal thought process, cooperative, good insight and good judgment Wound Management: Method: adhesive Examination: Present dressed, clean, dry and intact; Absent bloody drainage or serosanguinous drainage Urinary Catheter Management: 2-way Urethral: Cath placed during this visit: yes, but has since been removed by the nurse Reason for continuing: decision to DC catheter Insertion date: 08/15/22 Insertion time: 07:40 Removal date: 08/15/22 Removal time: 18:35
[2022-08-16] MEDS: DOCUSATE SODIUM 100 MG CAPSULE PO ×2 (08:21→20:41)
[2022-08-16] MEDS: SODIUM CHLORIDE 0.9 % (FLUSH) 10 ML SYRINGE IVF (08:22)
[2022-08-16] MEDS: IBUPROFEN 600 MG TABLET PO (20:41)
[2022-08-16] MEDS: OXYCODONE 5 MG TABLET PO (23:17)
[2022-08-17] MEDS: IBUPROFEN 600 MG TABLET PO ×2 (02:34→08:45)
[2022-08-17] MEDS: OXYCODONE 5 MG TABLET PO (05:32)
[2022-08-17] MEDS: ACETAMINOPHEN 500 MG TABLET 1000 MG PO (05:33)
[2022-08-17 07:38] VITALS: BP 128/82; PULSE 77; RESP 18; TEMP 36.6; O2SAT 97
--- NOTE | 2022-08-17 08:23 | PM.OBPNCS1 ---
OB - PN: A/P Assessment and Plan (1) Status post delivery: Status: Acute (2) Lactating mother: Status: Acute (3) Anxiety and depression: Status: Acute OB - PN: Subj Subjective Interval history: Adelaide is a 36 year old G5 now P3 at 38 0/7 weeks gestation that was admitted to the Center on 08/15/22 for repeat deliver. She had an uncomplicated low transverse delivery. She delivered a viable male . She is breast feeding and it is going very well per pt. the patient has done well. Pain is well controlled with Toradol and Tylenol. Pt has been up to bathroom and is urinating with no concerns, no BM yet. Lochia is rubra, small, no clots noted. Overall the pt feels great and has no concerns. OB - PN: Obj Exam Physical Exam: Vital signs: Temp Pulse Resp BP Pulse Ox O2 Del Method 98 F 77 18 128/82 97 08/17/22 07:38 08/17/22 07:38 08/17/22 07:38 08/17/22 07:38 08/17/22 07:38 08/17/22 07:38 Narrative: Physical exam: General: No acute distress Psych: Alert and oriented x3, full affect HEENT: Normocephalic, atraumatic, oropharynx benign Neck: No cervical adenopathy, no thyromegaly Heart: Regular rate and rhythm, no murmur rub or gallop Lungs: Clear to auscultation bilaterally Abdomen: [ Normoactive bowel sounds, soft, no tenderness, rebound, or guarding, no masses, no hepatosplenomegaly, no hernias Skin: No lesions or rashes] Lower extremities: No edema or erythema Pelvic exam: [Mons normal, clitoris normal, urethral meatus normal. Labia minora and majora normal in appearance bilaterally. Perineum and anus normal appearance. Vaginal introitus normal appearance. Vagina pink and well rugated with scant white discharge. Cervix pink and without lesion. Bimanual exam reveals uterus to be soft, nontender, mobile, anteverted, of normal size and texture. No palpable adnexal masses or tenderness.] Urinary Catheter Management: 2-way Urethral: Cath placed during this visit: yes, but has since been removed by the nurse Reason for continuing: decision to DC catheter Insertion date: 08/15/22 Insertion time: 07:40 Removal date: 08/15/22 Removal time: 18:35
[2022-08-17] MEDS: DOCUSATE SODIUM 100 MG CAPSULE PO (08:45)
--- NOTE | 2022-08-17 08:46 | PM.OBDSCS1 ---
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 Incision with 2 spots at each corner with mild bleeding. Extra surgical glue applied. Overall, incision is non erythematous, nontender to palpation, without abnormal drainage or malodorous discharge. Skin: No lesions or rashes Lower extremities: No edema or erythema Pelvic exam: Scant bleeding on pad. Const: Vital Signs, click to edit/add: Vital Signs - 24 hr 08/16/22 16:18 08/16/22 23:30 08/17/22 07:38 Temperature 98.5 F 98.1 F 98 F Pulse Rate [Pulse Oximeter] 80 69 77 Respiratory Rate 16 16 18 Blood Pressure [Le ft Arm] 109/70 103/71 128/82 Pulse Oximetry 97 93 97 Oxygen Delivery Me thod Room Air Room Air Room Air OB - DS: Summary Hospital Course Hospital Course: The patient is a 36 year old, now G 5 P 3023 at 38 weeks gestation who was admitted to the Center on 08/15/22 for scheduled repeat section. She had an uncomplicated delivery. She delivered a viable male infant. She is a feeding. the patient has done well. She is tolerating a regular diet without nausea or vomiting. She has passed flatus. No bowel movements yet. She is ambulating without difficulty. Lochia is scant. She is urinating without a Torres. She denies chest pain, shortness of breath, nausea vomiting, headache, right upper quadrant pain, vision changes, or dizziness. Dispo: Patient is postop day 2. She is meeting all postoperative milestones. She is stable and appropriate for discharge on postop day 2. Peripartum Data Procedures: Procedures Operation Date: 08/15/22 07:00 Actual Procedure Side Surgeon p Repeat Section Not Applicable Kai Watkins MD [place] Infant Gender: Male Time Spent with Patient Time attestation: Total time spent providing and/or coordinating discharge services: Discharge Plan Discharge Disposition: Home, Self-Care Date of Admission: 08/15/22 05:03 Attending Provider on Discharge: Sofiya Awad Primary Care Provider: Luis Fernando Guido Condition: Stable Anticipated Discharge Date/Time: 08/17/22 12:30 Discharge Medications: New docusate sodium 100 mg Capsule 100 mg PO BID PRN (Reason: constipation) 60 Days Qty: 120 0RF ibuprofen 600 mg Tablet 600 mg PO Q6H PRN (Reason: Pain) 14 Days Qty: 30 0RF oxycodone 5 mg Tablet 5 mg PO 3XD PRN (Reason: Pain) 7 Days Qty: 21 0RF simethicone 80 mg Tablet,Chewable 80 - 160 mg PO Q4H PRN (Reason: Gas) Qty: 30 0RF sennosides [senna] 8.6 mg tablet 8.6 mg PO DAILY PRN (Reason: constipation) Qty: 14 0RF Continued buspirone 30 mg tablet 15 mg PO BID citalopram 40 mg tablet 40 mg PO DAILY cetirizine 10 mg tablet 10 mg PO DAILY albuterol 90 mcg/actuation aerosol 2 spray inhalation PRN PRN prenat.vits,pippa,woz-cphk-saipf Tablet 1 tab PO QDAY Probiotic 15 billion cell capsule, sprinkle 1 cap PO QDAY Rx Instructions: do not crush/chew/cut; swallow whole OR may open and sprinkle in cold drink/food Discharge Orders: Discharge Order (Routine); Ordered 08/17/22 Ordered By: Sofiya Awad Patient Education: OB /Breast Feeding Activity Restrictions/Additional Instructions: Activity restrictions: For all deliveries: Nothing vaginally for 6 weeks: no tampons/intercourse After a vaginal delivery: No lifting or exercise restrictions. After a section: 1. No driving while taking narcotic pain medication during the day. 1-2 weeks. Okay to be the passenger anytime. 2. Lifting restriction: Maximum of 20 pounds for 6 weeks. 3. No high impact or core exercises for 6 weeks. 4. Walking and going up/down stairs is safe by 1 day after delivery. Return to work: 1. 6 weeks after a vaginal deliver 2. 8 weeks after a section. Symptoms to report to doctor: -Bleeding that saturates more than one pad per hour ?-Passing clots larger than the size of a golf ball ?-Pain not relieved by prescribed medication ?-Fever above 100.4 degrees Fahrenheit ?-A foul vaginal odor ?-Difficulty in emotions, mood and functions ?-Thoughts of hurting yourself and/or ?-Painful, reddened area in your breast ?-Any drainage, redness or tenderness in your IV/epidural site ?-Severe headache that doesn't improve after taking medications ?-Changes in vision, including temporary loss of vision, blurred vision, and/or light sensitivity ?-Upper abdominal pain (usually under ribs on the right side) ?-Decrease in urination or painful, frequent urinating ?-Chest pain ?-Shortness of breath ?-Tenderness or pain with redness and/swelling in the calf(s) of your leg Follow-up: 1. With Kia Watkins MD in approximately 2 weeks for an incision check, screen for worsening anxiety/depression, discuss contraceptive options. 2. 6 week visit for an annual physical exam. consultation services are available to all mothers and babies for the first year after delivery.? To make an appointment, please call [phone]. Discharge Diet: Regular Follow Up Appointments: Kia Watkins MD [Staff Physician] - Luis Fernando Guido MD [Primary Care Provider] - Sofiya Awad MD [Staff Physician] - Forms: [employer] Info Instructions
== END 2022-08-17 10:20 | disposition home or self-care (01) | DRG 788 ==
PROVIDERS: Admitting Provider Obstetrics & Gynecology; PCP Family Medicine; Visit Provider Obstetrics & Gynecology
PROC: (CPT 59514; principal; 2022-08-15 07:00)
DX: O34.211 Maternal care for low transverse scar from previous cesarean delivery (principal); O99.344 Other mental disorders complicating childbirth; F41.9 Anxiety disorder, unspecified; F32.A Depression, unspecified; Z14.1 Cystic fibrosis carrier; Z86.16 Personal history of COVID-19; Z3A.38 38 weeks gestation of pregnancy; Z37.0 Single live birth
CPT/HCPCS: 01961; 36415; 64488; 76942; 85018; 85025; 86850; 86900; 86901; 87635; A9270; C9290; J0690; J1885; J2274; J2370; J2405; J2590; J7120; S0020

== ENCOUNTER 2024-10-13 17:50 | Emergency (ER) | payer BC, SELFPAY ==
[2024-10-13 17:58] VITALS: BP 131/88; PULSE 84; RESP 20; TEMP 36.8; O2SAT 98; BMI 25.7
--- NOTE | 2024-10-13 18:03 | ED_ITS ---
HPI - General Adult General Time Seen by Provider: 18:04 Date Seen: 10/13/24 Chief complaint: Unspecified Complaint, Adult Stated complaint: Pneumonia Time Seen by Provider: 10/13/24 18:02 Source: patient and RN notes reviewed Mode of arrival: ambulatory Limitations: no limitations History of Present Illness HPI narrative: Patient is a 39-year-old female coming in on amoxicillin and doxycycline for treatment of right lower lobe community-acquired pneumonia diagnosed in urgent care on chest x-ray. She was in urgent care yesterday, had about a week symptoms of respiratory symptoms. Her primary symptoms were hot flashes and chills but no documented fever, body aches, nasal congestion, cough and decreased appetite. 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 She has had no travel. She was started on doxycycline and amoxicillin. There is also a secondary finding of a pulmonary nodule, she did follow up in clinic with the primary provider today. She noted that she was feeling worse but provider appropriately discuss that antibiotics really have not had enough time to work. Patient is saying that she has got a very bad headache now, her CT is scheduled for tomorrow. She has nausea now. We reviewed the nausea very well may be coming from the antibiotics. She states she tried the yogurt, she is just feeling miserable. She is tearful talking to me. She does not feel short of breath. She does have an underlying history of seasonal allergies with exercise-induced asthma. She is getting diminished sleep. Her amoxicillin is a 1000 mg 3 times a day for 5 days, doxycycline 100 mg twice a day for 5 days. Related Data Home Medications ?Medication ?Instructions ?Recorded ?Confirmed fexofenadine 60 mg tablet (Agueda 60 mg PO BID 08/12/24 10/13/24 Allergy) multivitamin (Daily Multi-Vitamin 1 tab PO QAM 08/12/24 10/13/24 tablet) Previous Rx's ?Medication ?Instructions ?Recorded albuterol sulfate 90 mcg/actuation 1 inh inhalation Q4-6H PRN 04/05/24 breath activated powder inhaler shortness of breath #1 ea citalopram 40 mg tablet 40 mg PO DAILY #90 tabs 04/05/24 buspirone 15 mg tablet 15 mg PO BID #180 tabs 05/04/24 amoxicillin 500 mg capsule 1,000 mg (2 x 500 mg) PO TID 5 10/12/24 days #30 caps doxycycline hyclate 100 mg capsule 100 mg PO BID 5 days #10 caps 10/12/24 Allergies Allergy/AdvReac Type Severity Reaction Status Date / Time erythromycin base Allergy Intermediate Rash Verified 10/13/24 11:18 Sulfa (Sulfonamide Allergy Intermediate Rash Verified 10/13/24 11:18 Antibiotics) Review of Systems Status of ROS: Reports: 6 or more systems reviewed and unremarkable except as noted in History and below PFSH PFS Medical History COVID-19 affecting , antepartum ?O98.519 - Other viral diseases complicating , unspecified trimester (ICD-10) ?U07.1 - COVID-19 (ICD-10) Multiple atypical nevi (2017) ?D22.9 - Melanocytic nevi, unspecified (ICD-10) Multigravida of advanced maternal age ?O09.529 - Supervision of elderly multigravida, unspecified trimester (ICD- 10) Ectopic ?O00.90 - Unspecified ectopic without intrauterine (ICD- 10) Surgical History Status post delivery ?Z98.891 - History of uterine scar from previous surgery (ICD-10) Status post repeat low transverse section (08/15/22) ?Z98.891 - History of uterine scar from previous surgery (ICD-10) History of tonsillectomy ?Z90.89 - Acquired absence of other organs (ICD-10) History of loop electrical excision procedure (LEEP) (2009) ?Z98.890 - Other specified postprocedural states (ICD-10) History of section ?Z98.891 - History of uterine scar from previous surgery (ICD-10) Family History Family/Other Spina bifida Cystic fibrosis Father High blood pressure Other Pyloric stenosis Social History 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: 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 Nonsmoker Exercises regularly Rare alcohol use Smoking Status: Never smoker Do you use any of these nicotine containing products: None How often do you have a drink containing alcohol: never AUDIT-C Alcohol total score: 0 Non-prescribed substance use: denies use service: No Exam Const: Vital Signs, click to edit/add: Vital Signs - 24 hr 10/13/24 17:58 10/13/24 19:01 Temperature 98.2 F Pulse Rate [Pulse Oximeter] 84 Respiratory Rate 20 Blood Pressure 117/77 Blood Pressure [Ri ght Upper Arm] 131/88 Pulse Oximetry 98 Oxygen Delivery Me thod Room Air Patient is tearful but alert, interactive, no apparent distress. Breathing easy on room air, speech is normal. Symmetrical facial function. Sclera slightly injected but is making tears. Lungs have some crackles that are faint right base but otherwise clear elsewhere, no wheezing, no tachypnea, good breath sounds elsewhere. CV regular rate and rhythm, no murmur, normal S1-S2, no S3- S4. Abdomen is soft, nontender, nondistended, no organomegaly. Documenting provider has reviewed patient's vital signs: yes Course Course ED Course: Will proceed with her chest CT now. She is not tachypneic, no tachycardia, no hypoxia and is not short of breath. I do not think we need to do this with IV contrast. We will do basic labs. Will ensure that she is not requiring further management. Did review with her that there certainly can be side effects with GI issues from these medications she is on. With a high-dose amoxicillin, I do believe headaches can be problematic but will review the literature. Did review with her that she really has not given the antibiotics long enough probably to consider this medication failure. She certainly is on appropriate treatment for community-acquired pneumonia. Reevaluation(s) Time of Reevaluation #1: 19:07 Reevaluation #1: Have provided patient a copy of her chest CT. We reviewed that there is pneumonia, the calcified lesion is a probable granuloma but there is possible of other alternatives. This is very likely benign from what is seen on the CT which is reassuring. Did discuss with her that her primary provider could send her to a pulmonary clinic just to ensure no recommendations for biopsy. This would be likely amenable to biopsy if thought needed. As for her pneumonia, the amoxicillin 1000 mg t.i.d. is appropriate but it is high dose. Stomach issues, headaches are common side effects. She declines any Toradol. I do think she will have sufficient coverage if she back down to 1000 mg twice a day of the amoxicillin. She does need to stay on the doxycycline. We did discuss that t here is side effects with doxycycline which definitely include GI issues. Her white blood count is normal, we need to await her chemistries. Time of Reevaluation #2: 20:26 Reevaluation #2: Have reviewed with patient that her labs are certainly reassuring. Her C reactive protein is elevated but is not unexpected with her pneumonia. Answered questions for her. I think she should go down on the amoxicillin dosing to be able to effectively take this. Did discuss headache management, again she had declined Toradol earlier. She can try Tylenol and ibuprofen at home. She does have Zofran at home, she has anxiety and when she does get anxious does get nausea which is why she has this. Otherwise did offer her prescription for Zofran which she did not need. Vital Signs Vital signs: Initial Vital Signs Temperature 98.2 F 10/13/24 17:58 Temperature Source Temporal Artery Scan 10/13/24 17:58 Pulse Rate 84 10/13/24 17:58 Respiratory Rate 20 10/13/24 17:58 Blood Pressure 131/88 10/13/24 17:58 Blood Pressure Mean 102 10/13/24 17:58 Pulse Oximetry 98 10/13/24 17:58 Oxygen Delivery Method Room Air 10/13/24 17:58 Vital Signs Temperature 98.2 F 10/13/24 17:58 Pulse Rate 84 10/13/24 17:58 Respiratory Rate 20 10/13/24 17:58 Blood Pressure 131/88 10/13/24 17:58 Pulse Oximetry 98 10/13/24 17:58 Oxygen Delivery Method Room Air 10/13/24 17:58 Temperature 98.2 F 10/13/24 17:58 Pulse Rate 84 10/13/24 17:58 Respiratory Rate 20 10/13/24 17:58 Blood Pressure 117/77 10/13/24 19:01 Pulse Oximetry 98 10/13/24 17:58 Oxygen Delivery Method Room Air 10/13/24 17:58 Medical Decision Making Lab Data Lab results reviewed: Yes I reviewed the patient's lab results Labs: Lab Results 10/13/24 Range/Units 18:36 WBC 9.52 (4.50-11.00) K/uL RBC 4.70 (4.00-5.20) m/uL Hgb 13.7 (12.0-16.0) gm/dL Hct 41.4 (33.0-51.0) % MCV 88 (80-100) fL MCH 29 (26-34) pg MCHC 33 (32-36) gm/dL RDW Coeff of Martha 13.0 (11.5-15.5) % Plt Count 214 (140-440) K/uL Neut % (Auto) 85.3 H (42.0-72.0) % Lymph % (Auto) 9.2 L (20-44) % Vigo % (Auto) 4.5 (0.0-11.0) % Eos % (Auto) 0.7 (0.0-7.0) % Baso % (Auto) 0.2 (0.0-3.0) % Neut # (Auto) 8.10 H (1.7-7.0) K/uL Lymph # (Auto) 0.90 (0.90-2.90) K/uL Vigo # (Auto) 0.40 (0.00-0.90) K/UL Eos # (Auto) 0.07 (0.00-0.50) K/uL Baso # (Auto) 0.02 (0.00-0.30) K/uL Abs Immat Gran (auto) 0.01 (0.00-0.30) K/uL Imm/Tot Granulo (auto) 0.1 % Sodium 137 (135-149) mmol/L Potassium 4.3 (3.6-5.1) mmol/L Chloride 105 (96-114) mmol/L Carbon Dioxide 21 (20-32) mmol/L Anion Gap 11 (7-15) mEq/L BUN 11 (5-24) mg/dL Creatinine 0.6 (0.5-1.5) mg/dL Estimated Creat Clear 108.70 Estimated GFR 117 ml/min Glucose 109 (60-115) mg/dL Lactate 1.1 (0.5-1.9) mmol/L Calcium 9.2 (8.4-10.6) mg/dL Total Bilirubin 0.3 (0.1-1.5) mg/dL AST 34 (12-35) U/L ALT 29 (4-35) U/L Alkaline Phosphatase 46 (40-150) U/L C-Reactive Protein 16.2 H (0.5-1.0) mg/dL Total Protein 7.2 (6.0-8.3) g/dL Albumin 4.4 (3.3-5.0) g/dL Imaging Data CT scan - chest: Attestation: I have reviewed the pertinent imaging results. Radiologist's impression: Patient: NO MCNAMARA Facility:?[facility] Patient ID:?[id number] Site Patient ID:?[id number]. Site :?[id number] Study:?CT-Chest WITHOUT-10/13/2024 6:24:14 PM Ordering Physician:Devyn Dougherty Final Report: INDICATION: Worsening pneumonia symptoms. TECHNIQUE: CT chest without contrast. COMPARISON: Chest radiograph 10/12/2024. FINDINGS: Lungs and pleura: Large area of consolidation within the right lower lobe. No pleural effusion or pneumothorax. There is a 1.8 cm calcified, pleural-based mass within the lateral basal segment of the right lower lobe. No continuity with the underlying rib. The remainder of the lungs are clear. Heart and vasculature: Heart size is normal. Thoracic aorta and pulmonary artery are normal in caliber. Lymph nodes/mediastinum: No mediastinal, hilar, or axillary adenopathy. Right hilar and mediastinal lymph nodes. Chest wall: No masses. Upper abdomen: No acute or significant findings. Bones: Unremarkable for age. IMPRESSION: 1. Right lower lobe pneumonia. 2. 1.8 cm calcified pleural-based mass within the lateral basal segment of the right lower lobe. This most likely represents a calcified granuloma given the adjacent calcified hilar and mediastinal lymph nodes. A solitary fibrous tumor of the pleura is in the differential, though is much less favored. Please note that all CT scans at this facility use dose modulation, iterative reconstruction, and/or weight-based dosing when appropriate to reduce radiation dose to as low as reasonably achievable. Dictated by Lefty Devi MD @ 10/13/2024 6:56:04 PM (Electronic Signature) Discharge Plan Discharge Clinical Impression: Pulmonary nodule Community acquired pneumonia Qualifiers: Laterality: right Lung location: lower lobe of lung Qualified Code(s): J18.9 - Pneumonia, unspecified organism Instructions: Community Acquired Pneumonia (ED), Pulmonary Nodules (ED) Additional Instructions: Decrease amoxicillin to 1000mg twice daily but complete the pills. Keep on the doxycycline 100mg as you have been taking. Can use your Zofran at home for nausea if needed, follow prescription instructions. Do not need to have your CT tomorrow. Follow-up with clinic with your primary care provider within the next week, can review CT results and discuss further management of the nodule. Review handouts, do think you need to rest and stay hydrated. I would favor you being off work this week so that you can take the time to rest when needed. It still is good for you to get up and move around to keep your lungs expanded and aerated. If you feel you are worsening with fever, increasing difficulty breathing, shortness of breath, feeling worse over the next few days, do recommend re-evaluation. Prescriptions: No Action fexofenadine [Agueda Allergy] 60 mg tablet 60 mg PO BID multivitamin [Daily Multi-Vitamin] Tablet 1 tab PO QAM amoxicillin 500 mg capsule 1,000 mg PO TID 5 Days Qty: 30 0RF doxycycline hyclate 100 mg capsule 100 mg PO BID 5 Days Qty: 10 0RF citalopram 40 mg tablet 40 mg PO DAILY Qty: 90 3RF albuterol sulfate 90 mcg/actuation aerosol powdr breath activated 1 inh inhalation Q4-6H PRN (Reason: shortness of breath) Qty: 1 12RF buspirone 15 mg tablet 15 mg PO BID Qty: 180 3RF Follow Up/Referrals: Luis Fernando Guido MD [Primary Care Provider] -
--- NOTE | 2024-10-13 18:10 | CT_ITS ---
Patient: NO MCNAMARA Facility:?[facility] Patient ID:?[id number] Site Patient ID:?[id number]. Site :?[id number] Study:?CT-Chest WITHOUT-10/13/2024 6:24:14 PM Ordering Physician:Devyn Dougherty Final Report: INDICATION: Worsening pneumonia symptoms. TECHNIQUE: CT chest without contrast. COMPARISON: Chest radiograph 10/12/2024. FINDINGS: Lungs and pleura: Large area of consolidation within the right lower lobe. No pleural effusion or pneumothorax. There is a 1.8 cm calcified, pleural-based mass within the lateral basal segment of the right lower lobe. No continuity with the underlying rib. The remainder of the lungs are clear. Heart and vasculature: Heart size is normal. Thoracic aorta and pulmonary artery are normal in caliber. Lymph nodes/mediastinum: No mediastinal, hilar, or axillary adenopathy. Right hilar and mediastinal lymph nodes. Chest wall: No masses. Upper abdomen: No acute or significant findings. Bones: Unremarkable for age. IMPRESSION: 1. Right lower lobe pneumonia. 2. 1.8 cm calcified pleural-based mass within the lateral basal segment of the right lower lobe. This most likely represents a calcified granuloma given the adjacent calcified hilar and mediastinal lymph nodes. A solitary fibrous tumor of the pleura is in the differential, though is much less favored. Please note that all CT scans at this facility use dose modulation, iterative reconstruction, and/or weight-based dosing when appropriate to reduce radiation dose to as low as reasonably achievable. Dictated by Lefty Devi MD @ 10/13/2024 6:56:04 PM Signed by:?Lefty Devi MD @10/13/2024 6:56:04 PM (Electronic Signature)
[2024-10-13 18:37] LABS: Lactate* 1.1 mmol/L (0.5-1.9)
[2024-10-13 18:40] LABS: Basophils Absolute Auto 0.02 K/uL (0.00-0.30); Basophils Percent Auto 0.2 % (0.0-3.0); Eosinophils Absolute Auto 0.07 K/uL (0.00-0.50); Eosinophils Percent Auto 0.7 % (0.0-7.0); Hematocrit 41.4 % (33.0-51.0); Hemoglobin* 13.7 gm/dL (12.0-16.0); Immature Granulocytes Abs Auto 0.01 K/uL (0.00-0.30); Immature Granulocytes Pct Auto 0.1 %; Lymphocytes Percent Auto 9.2 % (20-44); Mean Corpuscular HGB Conc 33 gm/dL (32-36); Mean Corpuscular Hemoglobin 29 pg (26-34); Mean Corpuscular Volume 88 fL (80-100); Monocytes Percent Auto 4.5 % (0.0-11.0); Neutrophils Percent Auto 85.3 % (42.0-72.0); Platelet Count* 214 K/uL (140-440); White Blood Count* 9.52 K/uL (4.50-11.00)
--- OUTSIDE RECORDS SUMMARY | 2024-10-13 18:41 | XMS_ITS | Clinical Summary ---
Author Organization [facility] Address [place], [place] [address] Care Team Providers Care Lapel Padder Name Role Phone Pcp, No Primary Care Provider Unavailabl e Allergies Active Allergy Reactions Criticality Noted Date Comments Erythromycin Homeopathic Products Sulfa (Sulfonamide Antibiotics) Sulfasalazine Rash 09/10/2017 Medications Medication Sig Dispensed Refills Start Date End Date Status fluticasone (50 mcg per actuation) nasal solution (FLONASE)Indications :Allergic rhinitis, cause unspecified Inhale 1-2 Sprays into both nostrils once daily. 1 Bottle 3 04/14/2014 Active olopatadine (PATANOL) 0.1 % ophthalmic solutionIndications: Allergic rhinitis, cause unspecified Place 1 Drop into both eyes 2 times daily. 1 Bottle 2 06/16/2015 Active montelukast (SINGULAIR) 10 mg tabletIndications:Al lergic rhinitis, cause unspecified Take 1 tablet by mouth at bedtime. 90 tablet 0 06/19/2015 Active vitamin-folic acid 1 mg ( VITAMIN) tablet/capsule Take 1 tablet by mouth once daily. 0 11/14/2015 Active cetirizine (ZYRTEC) 10 mg tabletIndications:Ot her allergic rhinitis Take 1 tablet by mouth once daily. 0 02/02/2016 Active albuterol HFA (PROVENTIL HFA) 90 mcg/actuation inhalerIndications:A cute sinusitis, unspecified,Cough Inhale 1-2 Puffs by mouth every 6 hours if needed. 1 Inhaler 1 04/16/2016 Active mometasone-formotero l (DULERA) 100-5 mcg/actuation inhalerIndications:O ther seasonal allergic rhinitis Inhale 2 Puffs by mouth 2 times daily. 1 Inhaler 3 04/16/2016 Active cholecalciferol (VITAMIN D) 1,000 unit tablet Take 2 tablets by mouth once daily. 0 09/23/2017 Active PROXY UNCLASSIFIED MED (ORDER AWAITING PHARMACY ENTRY)Indications:Se asonal affective disorder (HC) Photo therapy lamp to use every morning for 30 1 unit 09/24/2017 Active citalopram (CELEXA) 20 mg tabletIndications:An xiety Take 1 tablet by mouth once daily. 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 Acne 04/24/2013 Anxiety 04/24/2013 Overview (04/24/2013): [place] by running Seasonal affective disorder 10/14/2012 Streptococcal sore throat 03/25/2007 Overview (03/25/2007): chronic tonsilitis Allergic rhinitis, cause unspecified Abnormal glandular Papanicolaou smear of cervix Overview (03/25/2007): h/o colposcopy, and LEEP 2005 Immunizations Name Administration Dates Next Due AMB Influenza, IIV3 (Age >=3 years)(Flu Clinic [facility]) 09/16/2008 DTP 07/10/1998 Influenza, IIV3 (Age >=3 years) 08/18/2009,01/06 Influenza, IIV4 09/23/2017 MMR 07/10/1998,09/16/1987 Meningococcal Vaccine (Menactra) 07/24/2007 Td (Age >=7 Years) 07/10/1998 Tdap 06/20/2008 Family History Medical History Relation Name Comments Hypertension Father Psychiatric illness Father SAD Other Other 1 P uncle childre n with cystic fibrosis Other Other 2 sister not a ca rrier Cancer Sister 1 skin Psychiatric illness Sister 2 SAD Relation Name Status Comments Father Other 1 Other 2 Sister 1 Sister 2 Social History Tobacco Use Types Packs/Day Years Used Date Smoking Tobacco: Never Smokeless Tobacco: Never Tobacco Cessation:Counseling Given: Yes Alcohol Use Standard Drinks/Week Comments No 0 (1 standard drink = 0.6 oz pur e alcohol) Sex and Gender Information Value Date Recorded Sex Assigned at Not on file Gender Identity Not on file Sexual Orientation Not on file Obstetrics History Para Term AB IAB SAB Ectopic Multiple Livin g Live Births 2 1 1 1 Date Outcome GA Total Labor Labor/2nd/3rd Weight Sex Type Anes PTL Lotus A1 A5 Name Clin Term Last Filed Vital Signs Vital Sign Reading Time Taken Comments Blood Pressure 115/77 11/06/2017 4:32 PM [facility] Pulse 68 11/06/2017 4:32 PM [facility] Temperature 36.6 C (97.8 F) 11/06/2017 4:32 PM [facility] Respiratory Rate 20 10/08/2017 7:41 AM [facility]FFER Oxygen Saturation 97% 11/06/2017 4:32 PM [facility] Inhaled Oxygen Concentration - - Weight 67.1 kg (148 lb) 11/06/2017 4:32 PM [facility] Height 165.8 cm (5' 5.28) 09/23/2017 11:04 AM C DT Body Mass Index 24.42 09/23/2017 11:04 AM CDT Plan of Treatment Health Maintenance Due Date Last Done Comments HIV for age 15-65 2000 Hepatitis C screening for age 18-79 2003 Tetanus booster 06/20/2018 06/20/2008, 07/10/1998 BMI (ht and wt on same day) for age 18+ 09/23/2018 09/23/2017, 02/02/2016 Depression screening for age 12+ 09/23/2018 09/23/2017, 02/02/2016 COVID-19 vaccine series (2023- season) 2024 Influenza for age 9-49 07/25/2024 7, 08/18/2009, 09/16/2008, Additional history exists Pap test for age 21-65 01/11/2025 2, 01/11/2022, 05/22/2016, Additional history exists Tdap Completed 06/20/2008 Pneumococcal series for age 6-64 Aged Out No longer eligible based on patient's age to complete this topic Procedures Procedure Name Priority Date/Time Associated Diagnosis Comments 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 MACHINE OPERATOR THIN PREP PAP SCREEN IMAGED Routine 01/11/2022 10:45 AM [facility]ON[facility]FFER from Last 3 Months or Most Recently Relevant to Health Maintenance Results * POUNCING MACHINE OPERATOR THIN PREP PAP SCREEN IMAGED (01/11/2022 10:45 AM [facility]) Case Report Gynecologic Cytology Report Case: [id number] Authorizing Provider: Shayy Awan PA-C Collected: 01/11/2022 1045 Ordering Location: [facility] Received: 01/14/2022 0841 First Screen: Irais Cruz Specimen: POUNCING MACHINE OPERATOR ThinPrep Vial Screening, Cervical/Vaginal 01/21/2022 4:39 PM [facility] INTERPRETATION/ RESULT NEGATIVE FOR INTRAEPITHELIAL LESION OR MALIGNANCY (NIL) (none) 01/21/2022 4:39 PM [facility] IMEN ADEQUACY Satisfactory for evaluation No endocervical component seen in a patient 01/21/2022 4:39 PM [facility] HPV REQUEST HPV if ASCUS 01/21/2022 4:39 PM [facility] Date of LMP 11/22/2022 01/21/2022 4:39 PM [facility] Last Pap Date 05/22/2016 01/21/2022 4:39 PM SPON[facility] Last Pap Result NIL 4:39 PM [facility] Menstrual Status 01/21/2022 4:39 PM SPON[facility]FFER [facility] Additional Information 01/21/2022 4:39 PM SPON[facility]FFER [facility] Comment: Interpreted at [facility] - [address], [place] [address] Automated Review Successful 01/21/2022 4:39 PM [facility] Comment:Specimen processed s uccessfully by automated retail support associate device, ThinPrep Imaging System, [employer] Note The pap test is a screening technique, not a diagnostic procedure. It is used primarily to screen for squamous cancers and precursor lesions. Published studies have shown that it is subject to both false negative and false positive results. The pap test should not be used as the sole means to diagnose or exclude pre-malignant and malignant lesions. 01/21/2022 4:39 PM SPON[facility] Other (Cervical/Vagina l) 01/11/2022 10:45 AM SPON[facility] BUFFER 01/14/2022 8:41 AM SPON[facility]FFER [facility] L[facility] [address] [place] [address], [place] from Last 3 Months or Most Recently Relevant to Health Maintenance Care Teams Lapel Padder Relationship Specialty Start Date End Date Pcp, No . PCP - General 10/30/18
--- OUTSIDE RECORDS SUMMARY | 2024-10-13 18:41 | XMS_ITS | Clinical Summary ---
Author Organization [facility] Address [address], [place] [address] Care Team Providers Care Straight Pin Making Machine Operator Name Role Phone Patience Arechiga APRN, LINDA Primary Care Prov ider Unavailable Source Comments You are receiving this document as you are listed as the primary care provider,follow-up provider, or the patient has been referred to you for consultation.This is in compliance with the Medicare and[facility] EHR Incentive Program,which states Providers who transition their patient to another setting of careor provider of care or refers their patient to another provider of care shouldprovide summary care record for each transition of care or referral. [employer] Allergies Active Allergy Reactions Criticality Noted Date Comments Sulfa Antibiotics Rash 09/10/2017 Medications Medication Sig Dispensed Refills Start Date End Date Status ALBUTEROL INIndications:exercis ed induced asthma Indications: exercised induced asthma Active cetirizine (ZYRTEC) 10 MG tablet Take 10 mg by mouth as needed for Allergies. Active vitamin-ferrous fumarate-folic acid (PRENATALPLUS) 27-1 MG tablet Take 1 Tab by mouth daily. Active Social History Tobacco Use Types Packs/Day Years Used Date Smoking Tobacco: Never Smokeless Tobacco: Never Sex and Gender Information Value Date Recorded Sex Assigned at Not on file Gender Identity Not on file Sexual Orientation Not on file Plan of Treatment Health Maintenance Due Date Last Done Comments Cervical Cancer Screening Due 1985 Hep C Screening (Preventive Services) 1985 HIV Screening (Preventive Services) 2001 Adult Preventive Visit 2003 DTaP/Tdap/Td (1 - Tdap) 2004 HepB (1) 2004 COVID-19 Vaccine (2023-2 5 season) 2024 Influenza (#1) 2024 Zoster/Shingles (1 of 2) 2035 HPV Vaccine Aged Out No longer eligi ble based on patient's age to complete this topic HepA Aged Out No longer eligi ble based on patient's age to complete this topic Hib Aged Out No longer eligi ble based on patient's age to complete this topic IPV (Polio) Aged Out No longer eligi ble based on patient's age to complete this topic Infant RSV Aged Out No longer eligi ble based on patient's age to complete this topic MCV4 Aged Out No longer eligi ble based on patient's age to complete this topic Pneumococcal Aged Out No longer eligi ble based on patient's age to complete this topic Care Teams Straight Pin Making Machine Operator Relationship Specialty Start Date End Date Patience Arechiga, [employer] S[employer]ER [employer] FINISHER, MEDICAL INSURANCE CODER PCP - General Nurse Practitioner 09/10/17
[2024-10-13 18:55] LABS: Slide Review Reflex No
[2024-10-13 19:01] VITALS: BP 117/77
[2024-10-13 19:39] LABS: Albumin* 4.4 g/dL (3.3-5.0); Chloride* 105 mmol/L (96-114)
[2024-10-13 19:40] LABS: Potassium* 4.3 mmol/L (3.6-5.1); Sodium* 137 mmol/L (135-149)
[2024-10-13 19:42] LABS: Bilirubin Total* 0.3 mg/dL (0.1-1.5); Creatinine* 0.6 mg/dL (0.5-1.5); Estimated Glomerular Filt Rate 117 ml/min
[2024-10-13 19:43] LABS: Alanine Aminotransferase* 29 U/L (4-35); Alkaline Phosphatase* 46 U/L (40-150); Anion Gap 11 mEq/L (7-15); Aspartate Amino Transferase* 34 U/L (12-35); Blood Urea Nitrogen* 11 mg/dL (5-24); Carbon Dioxide* 21 mmol/L (20-32); Glucose* 109 mg/dL (60-115); Total Protein* 7.2 g/dL (6.0-8.3)
[2024-10-13 19:44] LABS: Calcium* 9.2 mg/dL (8.4-10.6)
[2024-10-13 19:59] LABS: C Reactive Protein* 16.2 mg/dL (0.5-1.0)
== END 2024-10-13 20:36 | disposition home or self-care (01) ==
LOC: ED 18:39
PROVIDERS: Emergency Provider Family Medicine; PCP Family Medicine
DX: R91.1 Solitary pulmonary nodule (principal); J18.9 Pneumonia, unspecified organism
CPT/HCPCS: 36415; 71250; 80053; 83605; 85025; 86140; 99284

== ENCOUNTER 2025-01-17 14:56 | Outpatient (CLI) | payer BC, SELFPAY ==
--- NOTE | 2025-01-17 15:00 | CRLHL7_ITS ---
For Patients: As a result of the Century Cures Act, medical imaging exams and procedure reports are released immediately into your electronic medical record. You may view this report before your referring provider. If you have questions, please contact your health care provider. INDICATION: Evaluate granuloma for size change, resolution. TECHNIQUE: CT chest without contrast. COMPARISON: CT chest from 10/13/2024. FINDINGS: Lungs and pleura: Compared to 10/13/2024, stable size and appearance of right lower lobe peripheral calcified lesion measuring 1.9 cm (3/58) favored to represent a granuloma. No new or enlarging lesions. Interval resolution of previously demonstrated pneumonia. Heart and vasculature: Heart size is normal. Thoracic aorta and pulmonary artery are normal in caliber. Lymph nodes/mediastinum: No mediastinal, hilar, or axillary adenopathy. Calcified right hilar lymph nodes consistent with prior granulomatous disease. Chest wall: No masses. Upper abdomen: No significant findings. Calcified splenic granulomas. Bones: Unremarkable for age. IMPRESSION: Compared to 10/13/2024, stable size and appearance of 1.9 cm pulmonary right lower lobe peripheral calcified lesion favored to represent a granuloma. Please note that all CT scans at this facility use dose modulation, iterative reconstruction, and/or weight-based dosing when appropriate to reduce radiation dose to as low as reasonably achievable. Dictated by Luis Fernando Lopez MD @ 01/18/2025 11:29:04 PM (Electronically Signed)
== END 2025-01-17 14:57 | disposition home or self-care (01) ==
LOC: CT 14:56
PROVIDERS: PCP Registered Nurse; Visit Provider Registered Nurse
DX: R91.1 Solitary pulmonary nodule (principal)
CPT/HCPCS: 71250

== ENCOUNTER 2025-04-27 07:54 | Outpatient (CLI) | payer BC, SELFPAY | END 2025-04-27 07:55 | disposition home or self-care (01) | LOC: NFLDREF 04-29 16:35 | PROVIDERS: PCP Registered Nurse; Referring Provider Registered Nurse; Visit Provider Registered Nurse | DX: R53.83 Other fatigue (principal) | CPT/HCPCS: 84443 ==

== ENCOUNTER 2025-07-22 08:57 | Outpatient (CLI) | payer BC, SELFPAY ==
--- NOTE | 2025-07-22 09:00 | CRLHL7_ITS ---
For Patients: As a result of the Century Cures Act, medical imaging exams and procedure reports are released immediately into your electronic medical record. You may view this report before your referring provider. If you have questions, please contact your health care provider. Indication: Pulmonary fibrosis -Monitoring calcified lesion right lower lobe Technique: Noncontrast CT chest Please note that all CT scans at this facility use dose modulation, iterative reconstruction, and/or weight-based dosing when appropriate to reduce radiation dose to as low as reasonably achievable. Comparison: 01/17/2025 Findings: Calcified granulomas in the spleen. Calcified subcarinal and right hilar lymph nodes. Visualized thyroid is normal. Large calcified granuloma in the right lateral lung base is unchanged. No infiltrate or edema. No effusion or pneumothorax. No fracture. No adenopathy. Impression: Stable densely calcified nodule in the right lower lobe measuring 1.9 cm. Please note that all CT scans at this facility use dose modulation, iterative reconstruction, and/or weight-based dosing when appropriate to reduce radiation dose to as low as reasonably achievable. Dictated by Luis Fernando Whitley MD @ 07/22/2025 1:06:33 PM (Electronically Signed)
== END 2025-07-22 08:58 | disposition home or self-care (01) ==
LOC: CT 08:57
PROVIDERS: Visit Provider Registered Nurse
DX: J84.10 Pulmonary fibrosis, unspecified (principal); R91.8 Other nonspecific abnormal finding of lung field
CPT/HCPCS: 71250

== ENCOUNTER 2025-11-15 08:00 | Outpatient (CLI) | payer BC, SELFPAY | END 2025-11-15 08:01 | disposition home or self-care (01) | LOC: NFLDREF 11-21 04:31 | PROVIDERS: PCP Family Medicine; Referring Provider Family Medicine; Visit Provider Family Medicine | DX: Z13.1 Encounter for screening for diabetes mellitus (principal); Z13.6 Encounter for screening for cardiovascular disorders | CPT/HCPCS: 80061; 82947 ==

== ENCOUNTER 2025-11-22 13:27 | Outpatient (CLI) | payer BC, SELFPAY ==
[2025-11-24 17:00] LABS: HPV Source Cervical/Vag
[2025-11-28 09:05] LABS: Pap Test Digital Imaging Done
== END 2025-11-22 13:28 | disposition home or self-care (01) ==
PROVIDERS: PCP Family Medicine; Visit Provider Family Medicine
DX: Z12.4 Encounter for screening for malignant neoplasm of cervix (principal)
CPT/HCPCS: 87624; 87625; 88141; 88142; 88175